=== PATIENT | male | born 1980 | race Caucasian/White ===

== ENCOUNTER 2020-07-28 10:45 | Emergency (ER) | payer OTHER, SELFPAY ==
--- NOTE | ~2020-07-28 | XR_ITS ---
EXAMINATION: XR finger 2nd RT min 2V DATE: 07/28/2020 11:06 INDICATION: Pain at the second digit of the right hand. TECHNIQUE: Dorsal palmar, lateral and 2 oblique views of the right second digit were obtained COMPARISON: 06/24/2017 FINDINGS: Tiny minimally distracted volar plate avulsion fracture at the base of the right second middle phalan x. No other fractures identified. Alignment is otherwise normal throughout the remainder of the visua lized right hand. Joint spaces are normal. Soft tissue swelling about the second proximal interphalan geal joint. IMPRESSION: 1. Tiny minimally displaced volar plate avulsion fracture at the base of the right second middle phal anx. Reviewed, dictated and finalized at location A. [facility] IMPRESSION: 1. Tiny minimally displaced volar plate avulsion fracture at the base of the ri ght second middle phalanx.
[2020-07-28 10:56] VITALS: BP 127/90; PULSE 72; RESP 16; TEMP 36.4; O2SAT 99
--- NOTE | 2020-07-28 11:01 | ED.GENADULT ---
HPI - General Adult General Chief complaint: Extremity Injury, Upper Stated complaint: Finger Pain Time Seen by Provider: 07/28/20 11:01 Source: patient Mode of arrival: ambulatory Limitations: no limitations History of Present Illness HPI narrative: 40-year-old male patient presents to the [facility] with complaints of right index finger pain. Patient states that he slipped on some ice and fell last night jamming his right index finger onto the ground. Denies hitting her head or losing consciousness. Patient states he did take 800 mg ibuprofen this morning for the pain. Patient states it feels very swollen and hard to bend and especially has pain to the his middle knuckle. Denies any numbness or tingling to the finger at this time. Patient states he is right-hand dominant Related Data Home Medications Medication Instructions Recorded Confirmed No Home Medications 07/28/20 07/28/20 Allergies Allergy/AdvReac Type Severity Reaction Status Date / Time No Known Allergies Allergy Verified 07/28/20 11:01 Review of Systems Review of Systems: Narrative: CONSTITUTIONAL: Denies fever, chills, or sweats. EYES: Denies visual changes, redness, or discharge. ENT: Denies rhinorrhea, congestion, sore throat, or otalgia. CARDIOVASCULAR: Denies chest pain, palpitations, or edema. RESPIRATORY: Denies cough or dyspnea. GASTROINTESTINAL: Denies abdominal pain, nausea, vomiting, or diarrhea. GENITOURINARY: Denies dysuria or hematuria. SKIN: Denies rash or itching. MUSCULOSKELETAL: Denies back pain, joint pain, or myalgia. Positive right index finger pain NEUROLOGIC: Denies headache, numbness, or weakness. PSYCHIATRIC: Denies anxiety or depression. [facility] Family History Family History Mother Hypertension Cerebrovascular accident Family history of coronary artery disease Family history of malignant neoplasm of breast in first degree relative Social History Social History Smoking status: Former smoker Smoking end date: 07/28/11 Alcohol intake: current Comments At the time of my signature I agree with nursing past medical history, surgical, social, and family history. There is no relevant family history pertinent to the presenting complaint. Exam Narrative: Exam Narrative: GENERAL: Well-appearing, well-nourished, and in no acute distress. HEAD: Normocephalic, atraumatic. EYES: PERRLA and EOMI. ENT: Nares clear, no rhinorrhea or epistaxis. Mucous membranes moist. NECK: Supple. No lymphadenopathy CHEST: Clear to auscultation. No respiratory distress. HEART: Regular rate and rhythm. No murmur heard. Normal peripheral pulses. ABDOMEN: Soft, nontender, nondistended, normal active bowel sounds. EXTREMITIES: The R hand is without obvious asymmetry or deformity when compared to the L hand. There is a small abrasion noted to the palm side of the right index finger over the MCP joint. There is some swelling and tenderness over the MCP joint to the right index finger. No nail avulsion, tissue avulsion, partial or complete amputation, subungual hematoma, bony deformity. Normal cascade of fingers. Decrease flexion and normal extension of right index finger. FDS and FDP intact aganist restistance. No focal fullness, thobbing pain, swelling of fingertip. Pulses and cap refill. SKIN: Warm, dry, no rash. NEURO: No focal deficits. Alert and oriented x3. Course Reevaluation(s) Reevaluation #1: Reevaluated patient after x-ray resulted. Discussed with him that there does seem to be a small avulsion fracture to the right index finger. Discussed with him that we will go ahead and put him in a removable splint and I will have him to follow-up with Dr. Montiel who is our hand specialist. Discussed with him that he will need to call their Friday to have a follow-up appointment meanwhile he can take Tylenol for pain and ice it to help with sw
== END 2020-07-28 11:20 | disposition home or self-care (01) ==
PROVIDERS: Emergency Provider Nurse Practitioner Family; PCP Family Medicine
DX: S62.620A Displaced fracture of middle phalanx of right index finger, initial encounter for closed fracture (principal); W00.0XXA Fall on same level due to ice and snow, initial encounter; Z87.891 Personal history of nicotine dependence
CPT/HCPCS: 29130; 73140; 99204; G0463